=== PATIENT | male | born 1965 | race Caucasian/White ===

== ENCOUNTER → 2019-08-04 | Outpatient (CLI) | payer OTHER ==
[~2019-08-04] MED LIST: INSU100I13 SQ; METF10007 PO; METO50TA4 PO
--- NOTE | 2019-08-04 12:49 | PAIN ---
DATE OF SERVICE: 08/04/2019 INITIAL CONSULTATION FOR PAIN CLINIC CHIEF COMPLAINT: Low back pain and right lower extremity pain. HISTORY OF PRESENT ILLNESS: This is a 54-year-old male, who presents with history of pain for many years, status post scoliosis correction and [place] foster placements in the lumbar and thoracic spine in 1986. The patient has had pain on and off since that time, but much worse over the past year or so up to 2 years. The patient reports it has been getting worse, radiating to the lower extremities, especially on the right side. He had the surgery done in [place] when he lived there, but has been here for many years now and the pain is increasing. The patient has had epidural injections in the past, nerve blocks, physical therapy as well as exercise, which he is currently doing. He is taking ibuprofen as well and still the pain is significant. The patient reports it awakens him from sleep at least 12 times a night. It did not affect his bowel or bladder control; however, it does affect his ability to walk, especially with his right foot and the lower back, in which he does have some chronic foot drop he reports on the right side. The patient describes the pain as constant and throbbing with numbness in the leg and across the low back bilaterally with burning sensation in the back and the leg. The patient rates the disability from 0-10, 10 being the worst, as an 8 with family home responsibilities, 8-9 with life support activities, 6 with recreation, 5 with social activity and self-care, 7 with sexual behavior, and 10 with occupational activities. 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 The patient did have an MRI scan of the lumbar spine showing severe spinal stenosis at the L4-L5 level, most pronounced with severe stenosis, [id number] bilateral neural foraminal stenosis as well as chronic compression deformity of L3 vertebral body, 50% loss in his height and multilevel postsurgical and degenerative changes of the lumbar spine. PAST MEDICAL HISTORY: Significant for type 2 diabetes, hypertension, arthritis. PREVIOUS SURGERY: Includes cervical fusion in 2014, left shoulder surgery in 2014, ORIF of the right hand in 1985, [place] foster placement in 1985 and foster removed and fusion completed in 1986, bilateral cataract extraction in 2016. CURRENT MEDICATIONS: Include insulin, metoprolol, and metformin. ALLERGIES: THE PATIENT IS ALLERGIC TO TRAMADOL AND AMPICILLIN. FAMILY HISTORY: Significant for diabetes. SOCIAL HISTORY: The patient does not drink alcohol, does not use any illegal, illicit, or recreational drugs. 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 REVIEW OF SYSTEMS: The patient's review of systems is positive for those items as mentioned in history of present illness. All systems reviewed and otherwise negative. It is complete, full and well documented on the patient's chart. PHYSICAL EXAMINATION: VITAL SIGNS: The patient's blood pressure 147/91, pulse 76, respirations 18, temperature is 98.1 degrees Fahrenheit, height is 5 feet 7 inches, weight is 168 pounds. GENERAL: The patient is awake, alert, oriented, appropriate, very pleasant demeanor. HEENT: Head shows normocephalic, atraumatic. Extraocular movements are intact and symmetrical. Oral cavity shows mucous membranes moist and pink. Dentition is intact. NECK: Shows anterior throat supple without palpable lymphadenopathy noted. Swallow reflex symmetrical. CHEST: Shows normal on inspection. Breath sounds are clear bilaterally. HEART: Shows S1, S2 clear. No murmurs auscultated. ABDOMEN: Soft, nontender, nondistended. No palpable organomegaly is noted. No rebound or guarding demonstrated. BACK: Shows spine grossly in the midline with some flattening of both the cervical, thoracic, and lordotic curvatures of the lumbar spine. The patient has well-healed surgical scar, which is extensive throughout the mid thoracic distribution to the sacrum. Paraspinous musculature appears symmetrical on inspection throughout, but is moderately tender and firm throughout the upper, middle, and lower distributions of the thoracic paraspinous musculature. Cervical and lumbar paraspinous muscles without specific radiation. There is limited extension and flexion secondary to previous surgery, but without significant pain with right or left rotation as well greater than 10 degrees. Extension 10 degrees, forward flexion about 40 degrees, but again without significant increase in pain with these maneuvers. The patient shows no tenderness over the spinous processes, sacrum or sacroiliac regions, are mildly tender in the posterior superior iliac spines bilaterally, but only diffusely without radiation. EXTREMITIES: The patient's lower extremities show deep tendon reflexes 1+ in the patellar and tendo-calcaneus tendons. Motor exam is approximately 4 on a scale of 5 and equal bilaterally with dorsiflexion, extension, quadriceps, and hamstring flexion. Lower extremities are warm and dry to touch, equal in color and appearance. Peripheral pulses are 1+ posterior tibia. No peripheral edema is noted bilaterally. The patient's straight leg raise noted to be positive bilaterally at about 40 degrees with pain in the posterior thigh, gluteus, and into the knee, again equal bilaterally, decreased with knee flexion, but not completely relieved. The patient is able to stand, stand on his toes without significant difficulty or loss of balance. [place] and Dorian maneuvers are negative bilaterally as well. SKIN: The patient's skin shows warm and dry, good turgor. No edema. No sores, rashes, or bruising throughout. IMPRESSION: 1. This is a 54-year-old male with extensive surgical history of lumbar spine with radicular pain in low back, left greater than right lower extremities. 2. MRI scan of lumbar spine as noted. 3. Diabetes. 4. Hypertension. 5. Arthritis. PLAN: Options were discussed with the patient, including conservative medical managements, physical therapies, interventional techniques. As he has clinical radiculopathy in L4-L5 dermatomal distribution bilaterally, we discussed the lumbar epidural steroid injection using description as well as anatomical models to describe the procedure. The patient would like to proceed with this. We will wait for preauthorization from his insurance provider. He will continue with doing stretching and strengthening exercises, taking ibuprofen in the meantime and exercising, walking, and working as best to his ability. The patient will follow up in approximately 1 week to plan on lumbar epidural steroid injection at the L4-L5 level translaminar at that time. ROSEMARIE MEDEIROS MD DR: ALLISON/raúl JOB#: [id number] / [id number]
== END | disposition home or self-care (01) ==
LOC: PNCL 10:16
PROVIDERS: ATTEND Anesthesiology
DX: M54.5 Low back pain (principal); M79.661 Pain in right lower leg; E11.9 Type 2 diabetes mellitus without complications; I10 Essential (primary) hypertension; M19.90 Unspecified osteoarthritis, unspecified site; Z83.3 Family history of diabetes mellitus; Z88.8 Allergy status to other drugs, medicaments and biological substances; Z79.84 Long term (current) use of oral hypoglycemic drugs; Z79.899 Other long term (current) drug therapy
CPT/HCPCS: G0463

== ENCOUNTER → 2019-11-17 | Outpatient (CLI) | payer OTHER ==
[~2019-11-17] MED LIST changes: +IBUP-1060 PO; +IOHEXOL 180 MG/ML 10 ML VIAL. ONE; +methylPREDNISolone ACETATE 40 MG/ML VIAL. ONE; +methylPREDNISolone ACETATE 80 MG/ML VIAL. ONE
--- NOTE | 2019-11-17 09:31 | PDOC ---
Progress Note - Pain Clinic Date of Service: DOS: DATE: 11/17/19 TIME: 09:28 Diagnosis: Dx: Lumbar radiculopathy with lumbar degenerative disc disease lumbar spinal stenosis and lumbar postlaminectomy syndrome History or Present Illness: HPI: 54-year-old male returns follow-up status post initial evaluation preauthorization for lumbar epidural steroid injection. Patient is obtained that now would like to proceed patient reports pain still in the low back bilateral lower extremities posterior gluteus posterior thigh posterior calves worse with walking standing changing positions patient is taking ibuprofen which does help to moderate extent about 40% patient reports the pain is still describes aching and sharp dull and tight stretching in the back burning cramping at times radiating the lower extremities as noted. Patient reports sleeping better at night but still wakes him from sleep about every 6 hours or so. Patient reports no new motor or sensory deficits no new bowel or bladder con's or other complaints. Patient rates his pain as a 9 on a scale of 10 is worse over the past week 5 on average and a to its least is a 5 today. Physical Exam: VS: Blood pressure is 147/84 pulse 71 respirations are 16 temperature 98.1 F height 5 foot 6 inches weight is 167 pounds PE: PHYSICAL EXAMINATION: GENERAL: The patient is awake, alert, oriented, appropriate, very pleasant demeanor HEENT: Shows normocephalic, atraumatic. Extraocular movements are intact and symmetrical. Oral cavity: Mucous membranes moist and pink. NECK: Shows anterior throat supple without palpable lymphadenopathy noted. Swallow reflex symmetrical. CHEST: Shows normal on inspection. Breath sounds are clear bilaterally, no rales rhonchi or wheezes. HEART: Shows S1, S2 clear. No murmurs auscultated. ABDOMEN: Soft, nontender, nondistended, obese. No palpable organomegaly is noted. No rebound or guarding demonstrated. BACK: Shows spine grossly in the midline. Normal-appearing cervical lordotic curvature. There is slightly increased thoracic kyphosis, some minor flattening of the lumbar lordotic curvature. Lumbar paraspinous muscles show symmetrical on inspection, on palpation shows some moderate tenderness diffusely throughout the upper, middle and lower distribution of the paraspinous muscles bilaterally, firm and tender, but without specific trigger points, without radiation of pain. The patient has good rotational motion of the lumbar spine, both laterally as well as extension and flexion without significant difficulty. No tenderness over the spinous processes, sacrum or sacroiliac regions. EXTREMITIES: Lower extremities show deep tendon reflexes 1+ in the patellar and tendo calcaneus tendons. Motor exam is 4 on a scale of 5 with right dorsiflexion, extension, quadriceps and hamstring flexion and 4/5 on the left. Peripheral pulses are 1+ posterior tibial. No peripheral edema is noted bilaterally. Lower extremities are warm and dry to touch, equal in color and appearance. SKIN: Shows warm and dry, good turgor. No edema. No sores, rashes or bruising throughout. Procedure: Procedure: Options were discussed with the patient. Patient will chart reviews her current medication regimen updated current review of systems updated today as well. We will proceed with a first in the series lumbar epidural steroid injection today with fluoroscopic guidance. Risks were discussed including but not limited to: Bleeding, infection, possibility of epidural hematoma and subsequent neurol ogical compromise, dural puncture, headaches, spinal cord and/or nerve damage, side effects of steroid medication, and poor results regarding pain control. Patient understands wished to proceed. Patient will return to the clinic in possibly 2 weeks for follow-up was counseled as return appointment activity level and side effects to be aware of. Medication Injected: Med Injected: Procedure is lumbar epidural steroid injection under local anesthetic using sterile prep and drape at the L5-S1 level using C-arm fluoroscopic guidance in both AP and lateral views medications injected is 120mg Depo-Medrol + 10 mL preservative-free normal saline and 2 mL contrast- condition at discharge is stable patient tolerated procedure well had no complications. Condition at Discharge: Condition at Discharge: Condition at discharge is stable patient tolerated the procedure well had no complications. ROSEMARIE MEDEIROS MD Nov 17, 2019 09:31
== END ==
LOC: PNCL 08:01
PROVIDERS: ATTEND Anesthesiology
DX: M51.16 Intervertebral disc disorders with radiculopathy, lumbar region (principal); M48.061 Spinal stenosis, lumbar region without neurogenic claudication; M46.1 Sacroiliitis, not elsewhere classified; I10 Essential (primary) hypertension; E11.9 Type 2 diabetes mellitus without complications; Z83.3 Family history of diabetes mellitus; Z79.899 Other long term (current) drug therapy
CPT/HCPCS: 62323; J1030; J1040; Q9965

== ENCOUNTER → 2020-03-26 | Outpatient (CLI) | payer OTHER ==
[~2020-03-26] MED LIST changes: +HYDR-2765 PO
--- NOTE | 2020-03-26 14:32 | PDOC ---
Progress Note - Pain Clinic Date of Service: DOS: DATE: 03/26/20 TIME: 14:29 Diagnosis: Dx: Lumbar radiculopathy with lumbar degenerative disc disease lumbar spinal stenosis and lumbar postlaminectomy syndrome History or Present Illness: HPI: 54-year-old male returns for follow-up status post lumbar epidural surgery x1. Last seen November 17, 2019. Patient reports he did very well for about 8 weeks after the last injection with at least 50% improvement or more patient reports still about 50% of the pain now in the low back and the right lower extremity posterior gluteus posterior thigh posterior calf patient reports is worse with walking standing changing positions better with sitting or laying down generally does not awaken from sleep at night. Patient reports an 8 on a scale of 10 is worse over the past week 7 on average 5 its least and is a 7 today. Patient reports no new motor or sensory deficits describes the pain as sharp and dull alternating the low back with some shooting pain in the right leg as described. Physical Exam: VS: Blood pressure is 142/90 pulse 84 respirations 18 temperature is 97.8 F height is 5 foot 6 inches weight is 167 pounds PE: PHYSICAL EXAMINATION: GENERAL: The patient is awake, alert, oriented, appropriate, very pleasant demeanor HEENT: Shows normocephalic, atraumatic. Extraocular movements are intact and symmetrical. NECK: Shows anterior throat supple without palpable lymphadenopathy noted. Swallow reflex symmetrical. CHEST: Shows normal on inspection. Breath sounds are clear bilaterally, no rales or rhonchi. HEART: Shows S1, S2 clear. No murmurs auscultated. ABDOMEN: Soft, nontender, nondistended, obese. No palpable organomegaly is noted. BACK: Shows spine grossly in the midline. Normal-appearing cervical lordotic curvature. There is slightly increased thoracic kyphosis, some flattening of the lumbar lordotic curvature, with well-healed midline surgical scar. Lumbar paraspinous muscles show symmetrical on inspection, on palpation shows some moderate tenderness diffusely throughout the upper, middle and lower distribution of the paraspinous muscles bilaterally, but without specific trigger points, without radiation of pain. The patient has good rotational motion of the lumbar spine, both laterally as well as extension and flexion without significant difficulty. EXTREMITIES: Lower extremities show deep tendon reflexes 1+ in the patellar and tendo calcaneus tendons. Motor exam is 4 on a scale of 5 with right dorsiflexion, extension, quadriceps and hamstring flexion and 4/5 on the left. Peripheral pulses are 1+ posterior tibial. No peripheral edema is noted bilaterally. Lower extremities are warm and dry to touch, equal in color and appearance. SKIN: Shows warm and dry, good turgor. No edema. No sores, rashes or bruising throughout. Procedure: Procedure: Options were discussed with the patient. Patient chart reviews his current medication regimen updated current review of systems updated today as well. We will proceed with a lumbar epidural steroid ejections a second in the series today with fluoroscopic guidance. Risks were discussed including but not limited to: Bleeding, infection, possibility of epidural hematoma and subsequent neurological compromise, dural puncture, headaches, spinal cord and/or nerve damage, side effects of steroid medication, and poor results regarding pain control. Patient understands and wished to proceed. Patient will return to clinic in approximate 2 weeks for follow-up was counseled as return appointment, activity level, and side effects to be aware of. Medication Injected: Med Injected: Procedure is lumbar epidural steroid injection under local anesthetic using sterile prep and drape at the L5-S1 level using C-arm fluoroscopic guidance in both AP and lateral views medications injected is 120 mg Depo-Medrol + 10 mL preservative-free normal saline and 2 mL contrast- condition at discharge is stable patient tolerated procedure well had no complications. Condition at Discharge: Condition at Discharge: Condition at discharge is stable, patient tolerated the procedure well and had no complications. ROSEMARIE MEDEIROS MD Mar 26, 2020 14:32
--- NOTE | 2020-03-26 14:33 | PDOC4 ---
PROCEDURE Procedure Patient was consented for lumbar epidural steroid injection. Risks were dis cussed including but not limited to: Bleeding, infection, possibility of epidural hematoma and subsequent neurological compromise, dural puncture, headaches, spinal cord and/or nerve damage, side effects of steroid medication, and poor results regarding pain control. Patient understands and wished to proceed. Procedure is lumbar epidural steroid injection under local anesthetic using sterile prep and drape at the L5-S1 level using C-arm fluoroscopic guidance in both AP and lateral views medications injected is 120 mg Depo-Medrol + 10 mL preservative-free normal saline and 2 mL contrast- condition at discharge is stable patient tolerated procedure well had no complications. ROSEMARIE MEDEIROS MD Mar 26, 2020 14:33
== END | disposition home or self-care (01) ==
LOC: PNCL 13:38
PROVIDERS: ATTEND Anesthesiology
DX: M51.16 Intervertebral disc disorders with radiculopathy, lumbar region (principal); M48.061 Spinal stenosis, lumbar region without neurogenic claudication; M96.1 Postlaminectomy syndrome, not elsewhere classified; Z79.84 Long term (current) use of oral hypoglycemic drugs; Z79.899 Other long term (current) drug therapy; Z98.890 Other specified postprocedural states; Z88.1 Allergy status to other antibiotic agents; Z88.8 Allergy status to other drugs, medicaments and biological substances
CPT/HCPCS: 62323; J1030; J1040; Q9965

== ENCOUNTER → 2020-05-17 | Outpatient (CLI) | payer OTHER ==
--- NOTE | 2020-05-17 08:59 | PDOC ---
Progress Note - Pain Clinic Date of Service: DOS: DATE: 05/17/20 TIME: 08:55 Diagnosis: Dx: Lumbar radiculopathy with lumbar degenerative disease lumbar spinal stenosis and post lumbar laminectomy syndrome History or Present Illness: HPI: 54-year-old male returns for follow-up status post lumbar epidural straight injection x2 last seen March 26, 2020 patient reports did very well about 80% improvement for the first month or so the pain began to return over the last 2 to 3 weeks patient reports increasing his low back bilateral lower extremity slightly more on the right than the left posterior gluteus posterior lateral thigh lateral anterior thighs and calves more on the right side patient ports is worse with walking standing changing positions better with sitting or laying down the leg beginning to awaken her from sleep over the last few days but prior to that he is done much better with distance walking doing household activities work activities sleeping better. Patient reports the pain is aching and dull shooting and sharp in the lower extremity sometimes cramping and stabbing in the back patient rates as a 9 on scale 10 is worse over the past week 8 on average 6 its least and is an 8 today. Patient reports no new motor or sensory deficits no new bowel or bladder cons or other complaints. Physical Exam: VS: Blood pressure is 155/87 pulse 90 respirations 16 temperature is 98.5 F height is 5 feet 6 inches weight is 159 pounds. PE: PHYSICAL EXAMINATION: GENERAL: The patient is awake, alert, oriented, appropriate, very pleasant demeanor HEENT: Shows normocephalic, atraumatic. Extraocular movements are intact and symmetrical. Oral cavity: Mucous membranes moist and pink. Dentition is intact. NECK: Shows anterior throat supple without palpable lymphadenopathy noted. Swallow reflex symmetrical. CHEST: Shows normal on inspection. Breath sounds are clear bilaterally. HEART: Shows S1, S2 clear. No murmurs auscultated. ABDOMEN: Soft, nontender, nondistended, obese. No palpable organomegaly is noted. No rebound or guarding demonstrated. BACK: Shows spine grossly in the midline. Normal-appearing cervical lordotic curvature. There is slightly increased thoracic kyphosis, some minor flattening of the lumbar lordotic curvature. Lumbar paraspinous muscles show symmetrical on inspection, on palpation shows some moderate tenderness diffusely throughout the upper, middle and lower distribution of the paraspinous muscles without specific trigger points, without radiation of pain. The patient has good rotational motion of the lumbar spine, both laterally as well as extension and flexion without significant difficulty. EXTREMITIES: Lower extremities show deep tendon reflexes 1 in the patellar and tendo calcaneus tendons. Motor exam is 4 on a scale of 5 with right dorsiflexion, extension, quadriceps and hamstring flexion and 4/5 on the left. Peripheral pulses are 1+ posterior tibial. No peripheral edema is noted bilaterally. Lower extremities are warm and dry to touch, equal in color and appearance. SKIN: Shows warm and dry, good turgor. No edema. No sores, rashes or bruising throughout. Procedure: Procedure: Options were discussed with the patient. Patient old chart was reviewed, his current medication regimen updated, current review of systems updated today as well. We will proceed with a third in the series lumbar epidural steroid injection today with fluoroscopic guidance. Risks were discussed including but not limited to: Bleeding, infection, possibility of epidural hematoma and subsequent neurological compromise, dural puncture, headaches, spinal cord and/or nerve damage, side effects of steroid medication, and poor results regarding pain control. Patient understands and wished to proceed. Patient will return to the clinic in approximate 2 weeks for follow-up, was counseled as to return appointment activity level and side effects to be aware of. Medication Injected: Med Injected: Procedure is lumbar epidural steroid injection under local anesthetic using sterile prep and drape at the L5-S1 level using C-arm fluoroscopic guidance in both AP and lateral views medications injected is 120 mg Depo-Medrol + 10 mL preservative-free normal saline and 2 mL contrast- condition at discharge is stable patient tolerated procedure well had no complications. Condition at Discharge: Condition at Discharge: Condition at discharge stable, patient tolerated procedure well and had no compl ications. ROSEMARIE MEDEIROS MD May 17, 2020 08:59
--- NOTE | 2020-05-17 09:00 | PDOC4 ---
PROCEDURE Procedure Patient was consented for lumbar epidural steroid injection. Risks were dis cussed including but not limited to: Bleeding, infection, possibility of epidural hematoma and subsequent neurological compromise, dural puncture, headaches, spinal cord and/or nerve damage, side effects of steroid medication, and poor results regarding pain control. Patient understands and wished to proceed. Procedure is lumbar epidural steroid injection under local anesthetic using sterile prep and drape at the L5-S1 level using C-arm fluoroscopic guidance in both AP and lateral views medications injected is 120 mg Depo-Medrol + 10 mL preservative-free normal saline and 2 mL contrast- condition at discharge is stable patient tolerated procedure well had no complications. ROSEMARIE MEDEIROS MD May 17, 2020 09:00
== END | disposition home or self-care (01) ==
LOC: PNCL 08:06
PROVIDERS: ATTEND Anesthesiology
DX: M51.16 Intervertebral disc disorders with radiculopathy, lumbar region (principal); M48.061 Spinal stenosis, lumbar region without neurogenic claudication; M96.1 Postlaminectomy syndrome, not elsewhere classified; Z79.84 Long term (current) use of oral hypoglycemic drugs; Z79.899 Other long term (current) drug therapy; Z79.82 Long term (current) use of aspirin; Z88.1 Allergy status to other antibiotic agents; Z88.8 Allergy status to other drugs, medicaments and biological substances
CPT/HCPCS: 62323; J1030; J1040; Q9965

== ENCOUNTER → 2020-05-31 | Outpatient (CLI) | payer OTHER ==
[~2020-05-31] MED LIST changes: -IOHEXOL 180 MG/ML 10 ML VIAL. ONE; -methylPREDNISolone ACETATE 40 MG/ML VIAL. ONE; -methylPREDNISolone ACETATE 80 MG/ML VIAL. ONE
--- NOTE | 2020-05-31 08:42 | PDOC ---
Progress Note - Pain Clinic Date of Service: DOS: DATE: 05/31/20 TIME: 08:39 Diagnosis: Dx: Lumbar radiculopathy with lumbar degenerative disc disease lumbar spinal stenosis and post lumbar laminectomy syndrome History or Present Illness: HPI: 54-year-old male returns for follow-up status post lumbar epidural steroid injections x3 most recently May 17, 2020 patient did very well with about a 50% improvement initially now down about 20% in the low back and right lower extremity mostly pain radiating to the lower back right posterior gluteus thigh into the calf and the foot with some numbness and tingling in the foot on the right side with walking patient reports otherwise he is doing fairly well he was walking a few days ago doing some shopping and could not feel his right foot patient reports he is awakening from sleep occasionally but not every night patient reports it is a 9 on scale 10 is worse over the past week 9 on average 6 its least and is a 7 today patient was aching dull tingling in the low back and right leg patient reports no new motor or sensory deficits no new bowel or bladder incontinence. Physical Exam: VS: Blood pressure is 149/79 pulse 78 respirations 16 temperature 98.1 F height is 5 foot 6 inches weight is 156 pounds PE: PHYSICAL EXAMINATION: GENERAL: The patient is awake, alert, oriented, appropriate, very pleasant demeanor HEENT: Shows normocephalic, atraumatic. Extraocular movements are intact and symmetrical. Oral cavity: Mucous membranes moist and pink. Dentition is intact. NECK: Shows anterior throat supple without palpable lymphadenopathy noted. Swallow reflex symmetrical. CHEST: Shows normal on inspection. Breath sounds are clear bilaterally, no rales or rhonchi. HEART: Shows S1, S2 clear. No murmurs auscultated. ABDOMEN: Soft, nontender, nondistended. No palpable organomegaly is noted. No rebound or guarding demonstrated. BACK: Shows spine grossly in the midline. Normal-appearing cervical lordotic curvature. There is slightly increased thoracic kyphosis, some minor flattening of the lumbar lordotic curvature. Lumbar paraspinous muscles show symmetrical on inspection, on palpation shows some moderate tenderness diffusely throughout the upper, middle and lower distribution of the paraspinous muscles without specific trigger points, without radiation of pain. The patient has good rotational motion of the lumbar spine, both laterally as well as extension and flexion without significant difficulty. EXTREMITIES: Lower extremities show deep tendon reflexes 1+ in the patellar and tendo calcaneus tendons. Motor exam is 4 on a scale of 5 with right dorsiflexion, extension, quadriceps and hamstring flexion and 4/5 on the left. Peripheral pulses are 1+ posterior tibial. No peripheral edema is noted bilaterally. Lower extremities are warm and dry. SKIN: Shows warm and dry, good turgor. No edema. No sores, rashes or bruising throughout. Procedure: Procedure: Options discussed with the patient. Patient's chart was reviewed, as was his current medication regimen, current review of systems updated today as well. We will proceed with a lumbar epidural steroid injection as the first in the series today with fluoroscopic guidance. Risks were discussed including but not limited to: Bleeding, infection, possibility of epidural hematoma and subsequent neurological compromise, dural puncture, headaches, spinal cord and/or nerve damage, side effects of steroid medication, and poor results regarding pain control. Patient understands and wished to proceed. Patient will return to the clinic in approximate 2 weeks for follow-up, was counseled as to return appointment activity level and side effects to be aware of. Medication Injected: Med Injected: Procedure is lumbar epidural steroid injection under local anesthetic using sterile prep and drape at the L5-S1 level using C-arm fluoroscopic guidance in both AP and lateral views medications injected is 120 mg Depo-Medrol + 10 mL preservative-free normal saline and 2 mL contrast- condition at discharge is stable patient tolerated procedure well had no complications. Condition at Discharge: Condition at Discharge: Condition at discharge is stable, patient alert the procedure well and had no complications. ROSEMARIE MEDEIROS MD May 31, 2020 08:42
--- NOTE | 2020-05-31 08:43 | PDOC4 ---
PROCEDURE Procedure Patient was consented for lumbar epidural steroid injection. Risks were dis cussed including but not limited to: Bleeding, infection, possibility of epidural hematoma and subsequent neurological compromise, dural puncture, headaches, spinal cord and/or nerve damage, side effects of steroid medication, and poor results regarding pain control. Patient understands and wished to proceed. Procedure is lumbar epidural steroid injection under local anesthetic using sterile prep and drape at the L5 S1 level using C-arm fluoroscopic guidance in both AP and lateral views medications injected is 120 mg Depo-Medrol + 10 mL preservative-free normal saline and 2 mL contrast- condition at discharge is stable patient tolerated procedure well had no complications. ROSEMARIE MEDEIROS MD May 31, 2020 08:43
== END | disposition home or self-care (01) ==
LOC: PNCL 08:08
PROVIDERS: ATTEND Anesthesiology
DX: M51.16 Intervertebral disc disorders with radiculopathy, lumbar region (principal); M48.061 Spinal stenosis, lumbar region without neurogenic claudication; M96.1 Postlaminectomy syndrome, not elsewhere classified; Z79.84 Long term (current) use of oral hypoglycemic drugs; Z79.899 Other long term (current) drug therapy; Z88.1 Allergy status to other antibiotic agents; Z88.8 Allergy status to other drugs, medicaments and biological substances
CPT/HCPCS: 62323